=== PATIENT | female | born 1985 | race Hispanic/Latino ===

== ENCOUNTER 2017-12-22 19:08 | Emergency (ER) | payer MEDICAID ==
[2017-12-22 19:55] LABS: RAPID GROUP A STREP POSITIVE (NEGATIVE)
== END 2017-12-22 20:05 | disposition home or self-care (01) ==
LOC: EDH 19:08
DX: J02.0 Streptococcal pharyngitis (principal); Z98.890 Other specified postprocedural states
CPT/HCPCS: 87804; 87880